=== PATIENT | female | born 1995 | race Two or more races ===

== ENCOUNTER 2020-03-28 13:25 | Outpatient (REF) | payer OTHER, SELFPAY ==
[2020-03-29 04:46] LABS: ~Hepatitis B Surface Antibody NONREACTIVE (Nonreactive)
[2020-03-29 07:51] LABS: Rubeola IgG (Measles) >300.00 AU/mL
[2020-03-30 21:58] LABS: TS Negative Control Passed; TS Panel A 0; TS Panel B 0; TS Positive Control Passed; TSpotTB Negative (SeeBelow)
== END 2020-03-28 13:26 | disposition home or self-care (01) ==
LOC: HO.LNP 13:25
PROVIDERS: Visit Provider Internal Medicine
DX: Z02.1 Encounter for pre-employment examination (principal)
CPT/HCPCS: 86481; 86706; 86735; 86762; 86765; 86787